=== PATIENT | male | born 1965 | race Caucasian/White ===

== ENCOUNTER → 2016-12-13 | Outpatient (CLI) | payer BC | END | disposition home or self-care (01) | LOC: US 17:37 | DX: N18.2 Chronic kidney disease, stage 2 (mild) (principal) ==

== ENCOUNTER 2020-05-15 02:25 | Observation (INO) | payer BC ==
[~2020-05-15] VITALS: Ht 175.2 cm; Wt 91.3 kg
[2020-05-15 02:30] VITALS: BP 177/99
[2020-05-15 03:27] LABS: BASO % 0.4 % (0.0-1.0); EOS # 0.1 10*3/uL (0.0-0.4); HEMATOCRIT 47.8 % (42.0-52.0); LYMPH # 3.9 10*3/uL (1.3-4.4); LYMPH % 38.3 % (27.0-41.0); MEAN CELL VOLUME 94.1 fl (80.0-94.0); MEAN CORPUSCULAR HGB 31.3 pg (27.0-31.0); MEAN CORPUSCULAR HGB CONC 33.3 g/dl (33.0-37.0); MEAN PLATELET VOLUME 8.8 fl (9.6-12.3); MONO # 0.8 10*3/uL (0.1-1.0); MONO % 7.8 % (3.0-9.0); NEUT # 5.3 10*3/uL (2.3-7.9); NEUT % 51.9 % (47.0-73.0); PLATELET COUNT AUTOMATED 378 10*3/uL (130-400); RED BLOOD COUNT 5.08 10*6/uL (4.50-5.90); RED CELL DISTRI WIDTH 12.9 % (0-14.5); WHITE BLOOD COUNT 10.2 10*3/uL (4.8-10.8)
[2020-05-15 03:38] LABS: ACT PARTIAL THROMBO TIME 25.3 SECONDS (20.0-32.1); INTERNATIONAL NORM RATIO 0.9 (2.0-3.5)
[2020-05-15 03:50] LABS: ALBUMIN 4.2 gm/dl (3.1-4.5); ALKALINE PHOSPHATASE 85 U/L (45-117); BUN 17 mg/dl (7-24); CHLORIDE 109 mmol/L (98-107); CREATININE 1.26 mg/dL (0.70-1.30); POTASSIUM 3.8 mmol/L (3.5-5.1); SGOT/AST 30 IU/L (3-35); SGPT/ALT 37 U/L (12-78); SODIUM 141 mmol/L (136-145); TOTAL PROTEIN 8.1 gm/dL (6.4-8.2)
[2020-05-15 03:51] VITALS: BP 142/83
[2020-05-15 03:51] LABS: TROPONIN I < 0.015 ng/ml (<0.045)
[2020-05-15 04:32] VITALS: BP 155/82
--- NOTE | 2020-05-15 04:32 | NUR ---
A 55, admitted to 4E, under the services of RONALD Levin DO with a diagnosis of CHEST PAIN. Chief complaint is CHEST PAIN. Patient arrived via wheel chair from ER. Monitor applied. Initial assessment completed. Vital signs taken and recorded. RONALD LEVIN DO notified of admission to the unit. Orders received. See assessment for past medical history, medications and allergies. Patient and/or family oriented to unit. visitation policy reviewed. Clothing/patient valuable form completed. [place] SHELTON
[2020-05-15] MEDS ORDERED: SIMVASTATIN40 MG PO (04:37)
[2020-05-15] MEDS ORDERED: AMLODIPINE BESYL5 MG PO (04:38)
[2020-05-15] MEDS ORDERED: ASPIRIN ADULT L81 M1 PO (04:38)
--- NOTE | 2020-05-15 04:39 | NUR ---
MED REC COMPLETED WITH PATIENT ALERT AND ORIENTED TO PERSON PLACE AND TIME
--- NOTE | 2020-05-15 04:52 | NUR ---
DR LERMA'S OFFICE AWARE OF CONSULT
[2020-05-15 06:29] LABS: CHOLESTEROL 108 mg/dL (<200); HDL CHOLESTEROL 30 mg/dl (40-60); LDL CHOLESTEROL 58 mg/dL (9-159); TRIGLYCERIDES 101 mg/dl (<150); VLDL CHOLESTEROL 20 mg/dL (6-40)
--- NOTE | 2020-05-15 08:00 | NUR ---
Alert and oriented x3. Pleasant and cooperative, talkative. Denies pain at this time, states he has very slight chest pressure but no chest pain. NSR on awake overnight monitor, HR 60-70's . Lungs clear throughout. Denies sob, denies cough. BM yesterday. Denies nausea. Skin intact. Pt is NPO for stress test this am.
--- NOTE | 2020-05-15 09:00 | NUR ---
Run Boat Operator in to talk to patient. Patient states lives at home with . There are no steps in the home. Physician: yu [facility]: [facility] Home health services: none Patient's level of ADLs: INDEPENDENT Patient has working utilities: all working DME: none Follow-up physician's appointment after d/c: will be made by hospitalist nurse director Does patient want to access PORTAL?: no Discharge plan discussed with patient, he states he lives at home with his , he is independent in adls and ambulation, works, drives, he states he will return home when discharged and denies any home needs, patient having a stress test today, case management will follow. GAGE SHARPE
--- NOTE | 2020-05-15 10:15 | NUR ---
INFORMED CONSENT OBTAINED FOR EXERCISE CARDIOLITE STRESS TEST WITH DR. LERMA. RESTING EKG NSR WITH A SUPINE HR OF 69 WITH BP OF 146/68 AND HR OF 86 WITH BP OF 138/74 IN STANDING POSITION. PT COMPLETED 7:30 OF A NIOCLLE PROTOCOL WITH COMPLETION OF 1:30 OF STAGE III AT 3.4 MPH AND 14% GRADE. REACHED A PEAK HR OF 159 WHICH IS 96% OF PREDICTED MAX WITH A PEAK BP OF 198/90. TEST TERMINATED BECAUSE OF FATIGUE. HAD NO CHEST PAIN. HAD NONDIAGNOSTIC ST. HAS A GOOD EXERCISE TOLERANCE. LAST RECOVERY HR OF 103 WITH BP OF 134/74. TO NUCLEAR MEDICINE POST TESTING FOR SCANNING IN STABLE CONDITION.
[2020-05-15 12:00] VITALS: BP 134/77
--- NOTE | 2020-05-15 13:00 | NUR ---
Spoke with [facility] cardiology regarding if ok to given lovenox. Dose verified. States ok to give DVT prophylaxis dose.
--- NOTE | 2020-05-15 14:45 | NUR ---
Stella from hospitalist office called and states that pt has called management regarding wanting to visit pt prior to him leaving tomorrow. States that Dr. Yin says ok for to visit. Notified Stella of plan for heart cath tommorrow at [facility] at 1330 and pt needs to be there by 1200.
--- NOTE | 2020-05-15 15:45 | NUR ---
Pt states that he would like [facility] for transport tomorrow. Notified [facility] deputy clerk of this.
[2020-05-15 16:00] VITALS: BP 149/78
--- NOTE | 2020-05-15 19:30 | NUR ---
PATIENT RESTING IN BED WATCHING TV. DENIES NEEDS AT THIS TIME. DENIES CHEST PAIN OR SHORTNESS OF BREATH. STATES HE STILL HAS THE CHEST PRESSURE THAT HE CAME IN WITH, BUT NOT ANY WORSE. ENCOURAGED TO CALL IF HE GETS ANY INCREASED CHEST PAIN OR SHORTNESS OF BREATH. VERBALIZED UNDERSTANDING. BED IN LOWEST POSITION, CALL LIGHT IN REACH
[2020-05-15 20:00] VITALS: BP 152/82
[2020-05-16] VITALS: BP 150/89
--- NOTE | 2020-05-16 06:50 | NUR ---
PATIENT RESTED WELL THROUGH THE NIGHT WITHOUT ANY EPISODES OF CHEST PAIN
[2020-05-16 08:00] VITALS: BP 152/70
--- NOTE | 2020-05-16 09:00 | NUR ---
case management visits with patient, he will be transferred to [facility] for heart cath, no other needs at this time
[2020-05-16] MEDS ORDERED: METOPROLOL SUCC25 M2 PO (09:18)
--- NOTE | 2020-05-16 10:31 | NUR ---
Report called to Felicita at [facility] [employer]. States that they want pt to have oral dose of aspirin.
--- NOTE | 2020-05-16 10:39 | NUR ---
Call placed to [facility] to verify that they would be here at 11 am for transport to [facility] lab. Dispatcher states they have it on schedule and will be leaving soon for supervisor picking crew.
--- NOTE | 2020-05-16 11:01 | NUR ---
[employer] here to picking belt operator pt for dc to [facility] for heart cath.
--- NOTE | 2020-05-16 11:05 | NUR ---
Pt left in care of [facility] ambulance.
== END 2020-05-16 11:05 | disposition short-term general hospital (02) ==
LOC: ED 02:25 → EDHOLD 04:06 → 4E 04:23 → EDHOLD 05-16 11:05
PROVIDERS: Emergency Medicine; Student in an Organized Health Care Education/Training Program; ADMIT Internal Medicine; ATTEND Internal Medicine
DX: R07.89 Other chest pain (principal); E87.8 Other disorders of electrolyte and fluid balance, not elsewhere classified; R73.9 Hyperglycemia, unspecified; I10 Essential (primary) hypertension; E78.5 Hyperlipidemia, unspecified; E66.3 Overweight; Z68.25 Body mass index [BMI] 25.0-25.9, adult

== ENCOUNTER → 2021-09-15 | Outpatient (CLI) | payer BC ==
[~2021-09-15] MED LIST: AMLODIPINE BESYL5 MG PO; ASPIRIN ADULT L81 M1 PO; METOPROLOL SUCC25 M2 PO; SIMVASTATIN40 MG PO
== END | disposition home or self-care (01) ==
LOC: RAD 11:46
PROVIDERS: ATTEND Physician Assistant
DX: M17.11 Unilateral primary osteoarthritis, right knee (principal); I70.8 Atherosclerosis of other arteries

== ENCOUNTER → 2021-09-24 | Outpatient (CLI) | payer BC | END | disposition home or self-care (01) | LOC: RAD 11:05 | PROVIDERS: ATTEND Physician Assistant | DX: R05.9 Cough, unspecified (principal); M25.561 Pain in right knee ==

== ENCOUNTER → 2024-07-27 | Outpatient (CLI) | payer BC ==
[~2024-07-27] MED LIST changes: +IOHEXOL 300 MG/ML 100 ML VIAL IV ONE
== END | disposition home or self-care (01) ==
LOC: CT 12:40
PROVIDERS: ATTEND Physician Assistant
DX: R93.89 Abnormal findings on diagnostic imaging of other specified body structures (principal); K76.0 Fatty (change of) liver, not elsewhere classified